=== PATIENT | female | born 1940 | race African-American/Black ===

== ENCOUNTER → 2016-07-08 | Outpatient (CLI) | payer OTHER | LOC: RAD 11:10 | DX: M48.06 Spinal stenosis, lumbar region (principal); M47.896 Other spondylosis, lumbar region ==

== ENCOUNTER 2016-08-16 09:31 | Inpatient (IN) | payer OTHER ==
[~2016-08-16] VITALS: Ht 162.6 cm; Wt 92.9 kg
--- NOTE | ~2016-08-16 | EKG ---
[address] [place] [address] ELECTROCARDIOGRAM REPORT Name: BORA RAMACHANDRAN Room #: 208-P [facility]#: [id number] Admission: 08/16/16 Attend Phys: Cristela López MD Discharge: Date of : 40 Report #: [id number] THIS REPORT FOR: //name// [facility] ED Test Date: 2016-08-16 Test Time: 10:26:51 Pat Name: BORA RAMACHANDRAN Department: Room: 208 Gender: F Administrative Sales Assistant: OCTAVIANO BENITEZ : 1940 Requested By: Armando Flores Order Number: [id number] MD: Thom Freedman Measurements Intervals [place] Rate: 82 P: 39 MD: 174 QRS: -20 QRSD: 76 T: 19 QT: 383 QTc: 448 Interpretive Statements Sinus rhythm No significant abnormality No previous ECG available for comparison Electronically Signed On 08-16-2016 16:50:32 CDT by Thom Freedman [email or web address] <ELECTRONICALLY SIGNED> By: Thom Freedman MD, [facility] 08/16/16 1650 1026 1026 Thom Freedman MD, FACC /EPI
--- NOTE | ~2016-08-16 | HC ---
[facility] [place] [address] CONSULTATION Name: BORA RAMACHANDRAN Room #: 208-P [facility] IN M.R.#: [id number] Admission: 08/16/16 Attend Phys: Patric Alejandro DO Discharge: 08/20/16 Date of : 40 Report #: [id number] THIS REPORT FOR: //name// CC: Patric Cornell The patient is a very pleasant 75-year-old -Faroese female, I have been asked to see for further evaluation of her episodic left upper quadrant abdominal pain radiating to her back, which became more constant over the course of the last couple of weeks. She has had these symptoms over the course of the last several months. She was discovered to have a possible pancreatic lesion on her CT scan and we have been asked to comment on this. PAST MEDICAL HISTORY: Her medical history is well outlined in the chart, but includes hypertension, hypercholesterolemia, and iron deficiency. Other medical history includes DVT, nausea, hysterectomy, laminectomy, and diabetes. MEDICATIONS: She has been on metformin, Xarelto and Amaryl. SOCIAL HISTORY: She denies alcohol or tobacco consumption. REVIEW OF SYSTEMS: Negative for weight loss, weakness, or fatigue. She has had decreased appetite. She denies head, eyes, ears, nose, or throat complaints, chest pain, chest palpitation, chest pressure, cough, shortness of breath, wheezing, genitourinary, musculoskeletal, or neuropsychiatric complaints, otherwise. PHYSICAL EXAMINATION: VITAL SIGNS: The patient is afebrile. Vital signs are stable. HEENT: Nonicteric. NECK: No JVD, thyromegaly, or bruits. CARDIOVASCULAR: Regular. LUNGS: Clear. ABDOMEN: Soft, nondistended, and nontender. Normoactive bowel sounds. No hepatosplenomegaly. No stigmata of chronic liver disease. No abnormal masses or bruits. EXTREMITIES: Not examined. NEUROLOGIC: Not performed. RECTAL: Not performed. PERTINENT LABS: Include hemoglobin 9.7, white count 11.4, MCV 67.9, RDW of 16.4, and platelet count 199. Differential was reviewed. INR 1.1. Chemistry notable for glucose 225. Her liver tests are normal including bilirubin, lipase 393, which is normal. IMAGING STUDIES: Reveal CT pelvis and abdomen, mass at the tail of pancreas and [address] [address] CONSULTATION Name: BORA RAMACHANDRAN Room #: 208-P [facility] IN M.R.#: [id number] Admission: 08/16/16 Attend Phys: Patric Alejandro DO Discharge: 08/20/16 Date of : 40 Report #: [id number] the splenic hilum, etiology difficult to determine concerning for thrombosed splenic artery aneurysm or pseudoaneurysm, mass within the tail of the pancreas was felt to be less likely. CT arteriogram reveals a reasonable consideration of a hemorrhage into a pancreatic tail tumor and an MRI was suggested. SUMMARY: The patient does not have constitutional symptoms that would suggest adenocarcinoma of the pancreas. The location of this mass also would speak against this. It is possible that she does have a cystic neoplasm in the tail of her pancreas with some hemorrhage into that area, particularly being on Xarelto. Other considerations still include a pseudoaneurysm of the splenic artery or other abnormality. The most definitive evaluation of pancreatic lesions is obtained by endoscopic ultrasound, which we could do as an outpatient. I do agree with an MRI to further characterize this lesion and determine a course of action. Again, I appreciate the opportunity to participate in her care. She does have evidence of iron deficiency, but has had upper endoscopy and colonoscopy performed in the past for which she may be do electively as an outpatient. <ELECTRONICALLY SIGNED> By: Jesus Mcneil MD 08/23/16 0811 1513 0959 Alex Alvarez MD /nt
[2016-08-16 09:49] VITALS: BP 175/81
[2016-08-16] MEDS ORDERED: METFORMIN HCL500 MG PO (09:56)
[2016-08-16] MEDS ORDERED: LOSARTAN-HCTZ1 EAC2 PO (09:56)
[2016-08-16] MEDS ORDERED: XARELTO20 MG PO (09:56)
[2016-08-16] MEDS ORDERED: LABETALOL HCL100 MG PO (09:57)
[2016-08-16] MEDS ORDERED: LIPITOR 20 MG T20 M1 PO (09:58)
[2016-08-16] MEDS ORDERED: IRON325 PO (09:59)
[2016-08-16] MEDS ORDERED: AMARYL2 MG PO (09:59)
[2016-08-16 10:32] LABS: URINE BILIRUBIN NEGATIVE (Negative); URINE BLOOD TRACE (Negative); URINE COLOR YELLOW; URINE GLUCOSE-RANDOM* NEGATIVE (Negative); URINE KETONES NEGATIVE (Negative); URINE LEUKOCYTES-REFLEX 1+ (Negative); URINE PROTEIN (DIPSTICK) NEGATIVE (Negative); URINE SPECIFIC GRAVITY 1.015 (1.003-1.035); URINE UROBILINOGEN 0.2 E.U./dl (0.2-1.0)
[2016-08-16 10:50] LABS: ABSOLUTE NEUTROPHILS 9.3 thou/uL (1.4-8.2); BASOPHILS 0.5 % (0.0-2.0); EOSINOPHILS 1.6 % (0.0-3.0); HEMOGLOBIN 9.7 gm/dL (12.0-15.0); LYMPHOCYTES 12.5 % (24.0-44.0); MCHC 32.4 g/dL (28.0-37.0); MCV 67.9 fL (80.0-100.0); MONOCYTES 4.4 % (1.0-8.0); PLATELET COUNT 199 thou/uL (150-400); RBC 4.41 mil/uL (4.20-5.00); RDW 16.4 % (10.5-14.5); WBC 11.4 thou/uL (4.0-11.0)
[2016-08-16 10:52] LABS: MANUAL DIFF NO
[2016-08-16 10:58] LABS: ANION GAP 8 mmol/L (7-16); BUN 19 mg/dL (7-18); CALCIUM 9.1 mg/dL (8.5-10.1); CHLORIDE 98 mmol/L (98-107); CO2 26 mmol/L (21-32); CREATININE 0.9 mg/dL (0.6-1.0); GLUCOSE 216 mg/dL (74-106); SODIUM 132 mmol/L (136-145)
[2016-08-16 11:05] LABS: ALBUMIN 3.6 g/dL (3.4-5.0); ALKALINE PHOSPHATASE 104 U/L (46-116); SGOT 13 U/L (15-37); SGPT 17 U/L (30-65); TOTAL BILIRUBIN 0.5 mg/dL (<0.1-1.0); TOTAL PROTEIN 6.8 g/dL (6.4-8.2); TROPONIN-I < 0.04 ng/mL (<0.04-0.07)
[2016-08-16 11:18] LABS: CASTS None Seen /LPF (None Seen); CRYSTALS None Seen /LPF (None Seen); SQUAMOUS >10 Many /LPF (0-3)
[2016-08-16 11:19] LABS: AMORPHOUS URATES Few /LPF (None Seen); URINE RBC None Seen /HPF (0-2); URINE WBC-REFLEX 0-5 Rare /HPF (0-5)
[2016-08-16 11:31] LABS: ANISOCYTOSIS 1+; HYPOCHROMASIA 2+; MICROCYTES 2+
[2016-08-16 11:32] LABS: OVALOCYTES 1+; SCHISTOCYTES OCCASIONAL
[2016-08-16 12:53] LABS: APTT 47.9 Seconds (24.5-32.8); INR 1.1; PROTIME 11.3 Seconds (9.3-11.4)
[2016-08-16 14:32] VITALS: BP 149/69
[2016-08-16 15:35] VITALS: BP 151/69
[2016-08-16 19:44] VITALS: BP 140/54
[2016-08-16 23:33] VITALS: BP 137/46
[2016-08-17 04:46] LABS: ABSOLUTE NEUTROPHILS 5.2 thou/uL (1.4-8.2); BASOPHILS 0.4 % (0.0-2.0); EOSINOPHILS 3.5 % (0.0-3.0); HEMATOCRIT 27.6 % (37.0-47.0); HEMOGLOBIN 8.9 gm/dL (12.0-15.0); LYMPHOCYTES 21.7 % (24.0-44.0); MCHC 32.4 g/dL (28.0-37.0); MCV 67.9 fL (80.0-100.0); MONOCYTES 9.4 % (1.0-8.0); PLATELET COUNT 182 thou/uL (150-400); RBC 4.06 mil/uL (4.20-5.00); RDW 16.2 % (10.5-14.5); WBC 7.9 thou/uL (4.0-11.0)
[2016-08-17 04:59] LABS: CALCIUM 8.8 mg/dL (8.5-10.1); POTASSIUM 3.6 mmol/L (3.5-5.1)
[2016-08-17 05:00] VITALS: BP 119/59
[2016-08-17 05:02] LABS: MANUAL DIFF NO
[2016-08-17 05:26] LABS: ANISOCYTOSIS 1+; LARGE PLATELETS OCCASIONAL; MICROCYTES 2+; OVALOCYTES OCCASIONAL; POLYCHROMASIA OCCASIONAL; SCHISTOCYTES OCCASIONAL
[2016-08-17 05:27] LABS: HYPOCHROMASIA SLIGHT
[2016-08-17 09:20] VITALS: BP 146/67
[2016-08-17 12:25] VITALS: BP 137/68
[2016-08-17 17:50] VITALS: BP 151/78
[2016-08-17 20:02] VITALS: BP 157/76
[2016-08-18 04:34] VITALS: BP 146/74
[2016-08-18 04:38] LABS: ABSOLUTE NEUTROPHILS 6.6 thou/uL (1.4-8.2); BASOPHILS 0.5 % (0.0-2.0); EOSINOPHILS 2.7 % (0.0-3.0); HEMATOCRIT 27.3 % (37.0-47.0); HEMOGLOBIN 8.9 gm/dL (12.0-15.0); LYMPHOCYTES 18.5 % (24.0-44.0); MCHC 32.5 g/dL (28.0-37.0); MCV 67.9 fL (80.0-100.0); MONOCYTES 7.6 % (1.0-8.0); POLYS 70.7 % (36.0-66.0); RBC 4.02 mil/uL (4.20-5.00); RDW 16.2 % (10.5-14.5); WBC 9.3 thou/uL (4.0-11.0)
[2016-08-18 04:44] LABS: MANUAL DIFF NO
[2016-08-18 04:55] LABS: CALCIUM 9.1 mg/dL (8.5-10.1); POTASSIUM 3.8 mmol/L (3.5-5.1)
[2016-08-18 05:17] LABS: ANISOCYTOSIS 2+; HYPOCHROMASIA SLIGHT; LARGE PLATELETS RARE; MICROCYTES 2+; PLATELET COUNT 171 thou/uL (150-400)
[2016-08-18 16:19] VITALS: BP 176/83
[2016-08-18 20:18] VITALS: BP 166/77
[2016-08-19 00:09] VITALS: BP 153/59
[2016-08-19 04:11] VITALS: BP 147/71
[2016-08-19 05:10] LABS: GLYCOHEMOGLOBIN (HGB A1C) 7.2 % (4.8-5.6)
[2016-08-19 07:00] VITALS: BP 143/63
[2016-08-19 12:45] VITALS: BP 149/64
[2016-08-19 17:10] VITALS: BP 136/54
[2016-08-19 19:37] VITALS: BP 155/56
[2016-08-20 00:03] VITALS: BP 158/83
[2016-08-20 04:46] VITALS: BP 148/69
[2016-08-20 07:59] VITALS: BP 137/78
[2016-08-20 12:00] VITALS: BP 153/73
[2016-08-20] MEDS ORDERED: LANTUS100 UNIT/M SUBQ (15:21)
[2016-08-20] MEDS ORDERED: AMARYL2 MG PO (15:44)
[2016-08-20] MEDS ORDERED: METFORMIN HCL500 MG PO (15:44)
[2016-08-20 16:05] VITALS: BP 153/73
[2016-08-20 16:12] VITALS: BP 153/73
== END 2016-08-20 17:15 | disposition home or self-care (01) | DRG 300 ==
LOC: ER 09:31 → EROBS 13:39 → 2N 13:39
PROVIDERS: Emergency Medicine; Internal Medicine Endocrinology, Diabetes & Metabolism
DX: I72.8 Aneurysm of other specified arteries (principal); K86.2 Cyst of pancreas; D50.9 Iron deficiency anemia, unspecified; E11.65 Type 2 diabetes mellitus with hyperglycemia; I10 Essential (primary) hypertension; E78.00 Pure hypercholesterolemia, unspecified; Z86.718 Personal history of other venous thrombosis and embolism; Z79.899 Other long term (current) drug therapy; Z90.710 Acquired absence of both cervix and uterus; Z88.6 Allergy status to analgesic agent; Z79.01 Long term (current) use of anticoagulants
CPT/HCPCS: 10081

== ENCOUNTER → 2016-10-24 | Outpatient (CLI) | payer OTHER ==
[~2016-10-24] MED LIST: AMARYL2 MG PO; IRON325 PO; LABETALOL HCL100 MG PO; LANTUS100 UNIT/M SUBQ; LIPITOR 20 MG T20 M1 PO; LOSARTAN-HCTZ1 EAC2 PO; METFORMIN HCL500 MG PO; XARELTO20 MG PO
== END ==
LOC: CAT 05:59
PROVIDERS: Psychiatry & Neurology Psychiatry
DX: K86.3 Pseudocyst of pancreas (principal)

== ENCOUNTER → 2016-11-24 | Outpatient (CLI) | payer OTHER | LOC: RAD 15:08 | DX: Z12.31 Encounter for screening mammogram for malignant neoplasm of breast (principal) ==

== ENCOUNTER → 2017-07-06 | Outpatient (CLI) | payer OTHER ==
[~2017-07-06] MED LIST changes: +LABETALOL HCL200 MG PO; +OMEPRAZOLE 20 M20 M1 PO
== END ==
LOC: ULTRA 14:00
DX: I82.431 Acute embolism and thrombosis of right popliteal vein (principal); M79.89 Other specified soft tissue disorders

== ENCOUNTER → 2018-03-31 | Outpatient (CLI) | payer OTHER ==
[~2018-03-31] VITALS: Ht 160 cm; Wt 90.3 kg
[~2018-03-31] MED LIST changes: +CHLORTHALIDONE25 MG PO; +COZAAR100 MG PO; +VITAMIN B-12500 MCG PO; +VITAMIN D32000 UNI1 PO
--- NOTE | 2018-03-31 11:12 | P ---
[facility] [place] [address] PROCEDURE REPORT Name: BORA RAMACHANDRAN [id number] Admission: 03/31/18 Attend Phys: Jesus Little Discharge: Date of : 40 Report #: [id number] THIS REPORT FOR: //name// CC: Mike Mcneil DATE OF SERVICE: 03/31/2018 PROCEDURE PERFORMED: Colonoscopy with biopsies. HISTORY OF PRESENT ILLNESS: The patient is a 77-year-old female with a history of anemia. Hemoglobin on 02/02/2018 was 10.1. She was Hemoccult positive at that time. She denies any obvious bright red blood per rectum or melena. No family history of colon cancer. The patient is on Xarelto for history of DVTs. At one time was on omeprazole. An upper endoscopy was also performed today that showed grade A erosive esophagitis as well as gastric erosions. No evidence of active bleeding. The patient states her last colonoscopy was approximately 10 years ago. She does not recall the findings at that time. She has had a previous hemorrhoidectomy. DESCRIPTION OF PROCEDURE: The risks and benefits of the procedure were explained to the patient, those risks including but not limited to bleeding, perforation, the risk of sedation. She understood these risks and gave informed consent. Sedation was given using propofol per anesthesia. Next, a digital rectal exam was initially performed, which was normal. Next, using a standard Olympus colonoscope, the scope was placed in the patient's anus and advanced under direct vision to the cecum. The overall prep was excellent. The cecum and ileocecal valve were normal in appearance. Ascending colon was normal. In the transverse colon, two 3-4 mm sessile polyps are noted, both removed with cold forceps, otherwise normal. The descending colon was normal. A few scattered diverticula were noted in the sigmoid colon, no evidence of inflammation or bleeding. The rectal mucosa was normal. On retroflexion, small nonbleeding internal hemorrhoids were noted. The scope was then withdrawn and the procedure terminated. The patient tolerated the procedure well. IMPRESSION: 1. Two small colonic polyps. 2. Sigmoid diverticulosis. 3. Small internal hemorrhoids. No evidence of bleeding. 4. Otherwise, normal colonoscopy. RECOMMENDATIONS: 1. Await biopsy results. 2. No evidence of active bleeding on EGD or colonoscopy today. As per the EGD report, consider restarting PPI therapy and monitoring hemoglobin. If the [address] [address] PROCEDURE REPORT Name: BORA RAMACHANDRAN Room #: REG [facility].#: [id number] Admission: 03/31/18 Attend Phys: Jesus Little Discharge: Date of : 40 Report #: [id number] patient remains anemic, may consider a M2 capsule of the small bowel in the future. Thank you for allowing me to participate in her care. <ELECTRONICALLY SIGNED> By: Jesus Mcneil MD 03/31/18 1112 0933 1025 Jesus Mcneil MD /nt
--- NOTE | 2018-03-31 11:12 | P ---
[facility] [place] [address] PROCEDURE REPORT Name: BORA RAMACHANDRAN [facility] [id number] Admission: 03/31/18 Attend Phys: Jesus Little Discharge: Date of : 40 Report #: [id number] THIS REPORT FOR: //name// CC: Mike Mcneil DATE OF SERVICE: 03/31/2018 PROCEDURE PERFORMED: Upper endoscopy with biopsies. HISTORY OF PRESENT ILLNESS: The patient is a 77-year-old female with history of anemia and Hemoccult positive stool in January. She has had a long history of anemia, is on oral iron therapy. She takes Xarelto for history of DVTs, at one point was on omeprazole and reportedly taken off due to possible interaction with Xarelto. She denies any significant heartburn, no dysphagia. The patient was scheduled for colonoscopy today only. We discussed proceeding with an upper endoscopy as well due to the anemia and heme positive stools and she agrees. DESCRIPTION OF PROCEDURE: The risks and benefits of the procedure were explained to the patient, those risks including but not limited to bleeding, perforation and the risk of sedation. She understood these risks and gave informed consent. Sedation was given using propofol per anesthesia. Next, using a standard Olympus upper endoscope, the scope was placed in the patient's mouth and advanced under direct vision through the esophagus, stomach and into the second portion of the duodenum. The larynx was normal in appearance. The upper and mid esophagus was normal. In the distal esophagus at the GE junction, grade A erosive esophagitis was noted. No evidence of bleeding. There were a few small erosions in the gastric mucosa and the gastric body. No bleeding, no ulcerations. Biopsies were obtained to rule out H. pylori. The pylorus was normal and patent. The duodenal bulb, first and second portion were all normal. The scope was then withdrawn and the procedure terminated. The patient tolerated the procedure well. IMPRESSION: 1. Grade A erosive esophagitis, no bleeding. 2. A few small gastric erosions, no bleeding. 3. Otherwise, normal upper endoscopy. RECOMMENDATIONS: 1. Await biopsy results. 2. May need to reconsider daily PPI therapy even though there are no signs of bleeding. On exam today, the patient does have esophagitis and gastric erosions, which could cause Heme-positive stools. Data suggested there is no interaction that I reviewed today. We will need to further discuss this with her primary physician and retail service specialist. [address] [address] PROCEDURE REPORT Name: BORA RAMACHANDRAN Room #: REG [facility] Bree#: [id number] Admission: 03/31/18 Attend Phys: Jesus Little Discharge: Date of : 40 Report #: [id number] Thank you for allowing me to participate in her care. <ELECTRONICALLY SIGNED> By: Jesus Mcneil MD 03/31/18 1112 0912 0922 Jesus Mcneil MD /nt
--- NOTE | 2018-04-01 16:08 | PATH ---
[facility] [place] [address] PATHOLOGY RPT PROCEDURE Name: BORA HUIZAR Room #: REG [facility] Wes.#: [id number] Admission: 03/31/18 Date of : 40 Discharge: Report #: [id number] Path Case #: [id number] [facility] Accession Number: [id number] . 01 Material submitted: . PART A: GASTRITIS BX R/O H. PYLORI PART B: TRANSVERSE COLON POLYP X 2 . 01 Clinical history: . Anemia, blood in stool Gastritis, colon polyp, diverticulosis, internal hemorrhoids Rule out H. pylori . 02 Diagnosis: A. Gastric mucosa, gastritis R/O H. pylori, endoscopic biopsy: - Mild reactive gastropathy. - Negative for intestinal metaplasia or atrophy. - Negative for Helicobacter pylori (properly controlled immunohistochemical stain performed). . B. Polyp x2, transverse colon, endoscopic biopsy: - One fragment showing tubular adenoma without high-grade dysplasia. - Remainder of fragments showing changes compatible with hyperplastic polyps without dysplasia. (IUV:letty; 04/01/2018) QMS/04/01/2018 . 02 Electronically signed: . Suki Dolan MD, Pathologist NPI- [id number] . 01 Gross description: . A. The specimen is received in formalin, labeled "Reed Huizarendolyn, BX gastritis" and consists of 3 fragments of manzo tissue measuring between 0.4 x 0.3 x 0.1 cm and 0.6 x 0.3 x 0.1 cm. They are entirely submitted in A1. . B. The specimen is received in formalin, labeled "Reed Huizarendolyn, BX polyp transverse colon x2" and consists of 3 fragments of soft manzo tissue measuring between 0.2 x 0.2 x 0.1 cm and 0.4 x 0.2 x 0.1 cm. They are entirely submitted in B1. (SDY; 03/31/2018) SYU/SYU . 02 Pathologist provided ICD-10: K31.9, D12.3, K63.5 . 02 CPT . [address] [address] PATHOLOGY RPT PROCEDURE Name: DUARTEBORA Santos Room #: REG [facility] Giron#: [id number] Admission: 03/31/18 Date of : 40 Discharge: Report #: [id number] Path Case #: [id number] Specimen Comment: A courtesy copy of this report has been sent to Specimen Comment: [phone], . Specimen Comment: Report sent to and Performed at: [address] [facility], [place] [id number] MD Luc Lennon MD Phone: [phone] Performed at: [address] [id number] MD Suki Dolan MD Phone: [phone]
== END | disposition home or self-care (01) ==
LOC: GI 03-22 11:29
DX: D12.3 Benign neoplasm of transverse colon (principal); K63.5 Polyp of colon; K57.30 Diverticulosis of large intestine without perforation or abscess without bleeding; K31.9 Disease of stomach and duodenum, unspecified; K64.8 Other hemorrhoids; K22.10 Ulcer of esophagus without bleeding; K21.9 Gastro-esophageal reflux disease without esophagitis; I12.9 Hypertensive chronic kidney disease with stage 1 through stage 4 chronic kidney disease, or unspecified chronic kidney disease; E11.22 Type 2 diabetes mellitus with diabetic chronic kidney disease; N18.9 Chronic kidney disease, unspecified; E78.00 Pure hypercholesterolemia, unspecified; G62.9 Polyneuropathy, unspecified; Z98.890 Other specified postprocedural states; Z79.899 Other long term (current) drug therapy; Z79.01 Long term (current) use of anticoagulants; Z86.2 Personal history of diseases of the blood and blood-forming organs and certain disorders involving the immune mechanism; Z86.718 Personal history of other venous thrombosis and embolism; Z87.891 Personal history of nicotine dependence; Z90.710 Acquired absence of both cervix and uterus; Z85.42 Personal history of malignant neoplasm of other parts of uterus; Z88.6 Allergy status to analgesic agent
CPT/HCPCS: 62110; 62900

== ENCOUNTER → 2018-08-18 | Outpatient (CLI) | payer OTHER | END | disposition home or self-care (01) | LOC: GI 08-16 09:11 | DX: D50.9 Iron deficiency anemia, unspecified (principal); I10 Essential (primary) hypertension; E11.9 Type 2 diabetes mellitus without complications; Z87.19 Personal history of other diseases of the digestive system; Z88.6 Allergy status to analgesic agent; Z79.899 Other long term (current) drug therapy; Z79.01 Long term (current) use of anticoagulants; Z98.890 Other specified postprocedural states ==

== ENCOUNTER 2018-11-16 11:11 | Emergency (ER) | payer OTHER ==
[~2018-11-16] VITALS: Ht 160 cm; Wt 89.8 kg
[2018-11-16 11:13] VITALS: BP 141/80
[2018-11-16] MEDS ORDERED: TRAMADOL 50 MG50 MG PO (11:50)
== END 2018-11-16 12:15 | disposition home or self-care (01) ==
LOC: ER 11:11
DX: M54.12 Radiculopathy, cervical region (principal); I12.9 Hypertensive chronic kidney disease with stage 1 through stage 4 chronic kidney disease, or unspecified chronic kidney disease; N18.9 Chronic kidney disease, unspecified; E11.22 Type 2 diabetes mellitus with diabetic chronic kidney disease; K21.9 Gastro-esophageal reflux disease without esophagitis; I10 Essential (primary) hypertension; M48.02 Spinal stenosis, cervical region; E78.00 Pure hypercholesterolemia, unspecified; E11.40 Type 2 diabetes mellitus with diabetic neuropathy, unspecified; G47.30 Sleep apnea, unspecified; Z90.710 Acquired absence of both cervix and uterus; Z86.718 Personal history of other venous thrombosis and embolism; Z85.42 Personal history of malignant neoplasm of other parts of uterus; Z88.5 Allergy status to narcotic agent; Z87.891 Personal history of nicotine dependence

== ENCOUNTER → 2018-12-27 | Outpatient (CLI) | payer OTHER ==
[~2018-12-27] MED LIST changes: +TRAMADOL 50 MG50 MG PO
== END ==
LOC: MRI 12:38
DX: M47.22 Other spondylosis with radiculopathy, cervical region (principal); M41.82 Other forms of scoliosis, cervical region; M48.02 Spinal stenosis, cervical region; M50.122 Cervical disc disorder at C5-C6 level with radiculopathy; M43.12 Spondylolisthesis, cervical region; M47.813 Spondylosis without myelopathy or radiculopathy, cervicothoracic region

== ENCOUNTER → 2019-04-15 | Outpatient (CLI) | payer OTHER | LOC: RAD 15:24 | DX: M47.816 Spondylosis without myelopathy or radiculopathy, lumbar region (principal); M47.898 Other spondylosis, sacral and sacrococcygeal region; M41.85 Other forms of scoliosis, thoracolumbar region ==

== ENCOUNTER → 2019-10-12 | Outpatient (CLI) | payer OTHER | LOC: ULTRA 08:51 | PROVIDERS: ATTEND Podiatrist Foot & Ankle Surgery | DX: M79.89 Other specified soft tissue disorders (principal); M79.662 Pain in left lower leg; M79.661 Pain in right lower leg; Z86.718 Personal history of other venous thrombosis and embolism ==

== ENCOUNTER → 2019-10-27 | Outpatient (CLI) | payer OTHER ==
[~2019-10-27] VITALS: Ht 162.6 cm; Wt 89.8 kg
[~2019-10-27] MED LIST changes: +BLACK ELDERBER1 EACH PO; +MAGNESIUM400 MG PO
--- NOTE | ~2019-10-27 | HPC ---
[facility] [place] [address] PAIN MANAGEMENT CONSULTATION Name: BORA RAMACHANDRAN Room #: REG [facility] Wes.#: [id number] Admission: 10/27/19 Attend Phys: Christian Adkins MD Discharge: Date of : 40 Report #: [id number] THIS REPORT FOR: cc: Daisy Petty Shanna R. DO Morgan, Richard L. MD ~ CC: Dr. Amber Petty [facility] DATE OF SERVICE: 10/27/2019 CHIEF COMPLAINT: Numbness right arm, pain and numbness in both hands. The patient is a pleasant 79-year-old who I am seeing today at the request of Dr. Russell for cervical radiculopathy. Her daughter, Micheline, was also part of her visit by [facility] and was able to listen into the consultation and ask questions. The patient has been having progressively worse pain in her neck and in her arm. She has symptoms in both arms, although that is somewhat different. On the right, she has pain that radiates into the hand. This was diagnosed by EMG as carpal tunnel syndrome. Dr. Clark performed surgery and this initially helped. The numbness; however has worsened. She now has pain once again in her right arm. More severe pain is noted in her left arm, mostly in the upper arm, but it radiates down also into the forearm and hand. It is severe when she sleeps and she has difficulty finding a comfortable position starting on her back then moving to her right side and back. She has been limiting the use of her arms other than the most essential of activities and that provide some relief, but it is getting more difficult to function. She uses a walker and has noticed that over the last 6 months she is also experiencing some changes in her gait with difficulty. It is difficult for her to stand. She is unsteady and she has difficulty going up and down steps with weakness. This is concerning given the fact that her MRI shows that she has myelomalacia and there is compression of the spinal cord due to an anterolisthesis of C4 on C5 of approximately 4 mm. There is a dextroscoliotic curvature at this location as well. No evidence of bone injury or acute bone edema. Additional changes are also noted at C6-C7 with prominent joint degenerative changes. The canal was tapered at C4-C5. At C6-C7 central disk protrusion also tapers the canal to 9 mm. This affects the neural foramina bilaterally. Some changes of a similar nature seen 1 level below at C7-T1. I did review the MRI and there is a fairly significant thickening of the ligamentum flavum at that level. MEDICATIONS: Elderberry capsules, magnesium, vitamin D. Xarelto 20 mg, last taken yesterday in the afternoon. Cozaar, Trandate, chlorthalidone, Glucophage, [address] [address] PAIN MANAGEMENT CONSULTATION Name: BORA RAMACHANDRAN Room #: REG [facility] Giron#: [id number] Admission: 10/27/19 Attend Phys: Christian Adkins MD Discharge: Date of : 40 Report #: [id number] atorvastatin. ALLERGIES: CODEINE CAUSES NAUSEA AND ELEVATES HEART RATE. PAST MEDICAL HISTORY: History of type 2 diabetes and anemia, hypertension and irritable stomach as she describes it. No history of gastritis or ulcer. Osteoarthritis. History of endometrial cancer treated with surgery in 1997. PAST SURGICAL HISTORY: Tonsillectomy in , D and C x3 in the , hysterectomy in 1997 and laminectomy lumbar 06/1998. SOCIAL HISTORY: She is single, retired and worked for [employer] until 1998. She denies use of tobacco or alcohol. She has a supportive daughter. REVIEW OF SYSTEMS: Positive for weight gain, fatigue, weakness, hearing loss, palpitations, occasional nausea and nocturia. She complains of nervousness and some memory loss. PHYSICAL EXAMINATION: GENERAL: Pleasant 79-year-old. She can move independently from sitting to standing position, but she is very weak. She is clearly walker dependent and a fall risk. HEENT: Reveals pupils to be equal, round, react to light. EOMs are intact. She is wearing a mask for COVID restrictions. NECK: Supple with tenderness posteriorly and below the occiput on both the right and left. Tenderness extends on the left, down into the shoulder, upper arm and forearm. CHEST: Her chest is clear. CARDIAC: Rhythm is regular, but she has a grade 3/6 systolic murmur, which she reports is chronic. ABDOMEN: Tender. Bowel sounds are present. MUSCULOSKELETAL: Reveals decreased range of motion of the cervical spine, neck extension causing dizziness as well as pain radiating into the left arm. Tenderness along the neck, bilateral trapezius and upper arm, left worse than right. She has weakness with left arm abduction and adduction against resistance. Biceps testing shows symmetry and generalized weakness bilaterally. Change Of Address Clerk strength similarly shows weakness. She complains of some numbness subjectively to light touch in the C6-C7 distribution. Deep tendon reflexes are 2+ biceps, triceps and brachioradialis. In the lower extremity, bilateral knee reflexes are extremely brisk with perhaps 1 beat of clonus. Ankle reflexes are diminished bilaterally and symmetrically. IMPRESSION: 1. Cervicalgia with radiculopathy. 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 Cervical radiculopathy. It follows a lower C6-C7 distribution. [facility] [address] [place] [address] PAIN MANAGEMENT CONSULTATION Name: BORA RAMACHANDRAN Room #: REG [facility].#: [id number] Admission: 10/27/19 Attend Phys: Christian Adkins MD Discharge: Date of : 40 Report #: [id number] 2. Type 2 diabetes. 3. Hypertension. 4. History of endometrial cancer in 1997. RECOMMENDATIONS: She cannot have an epidural injection on Xarelto. She takes it for DVT. She would need to be off it for a minimum of 3 days. We would prefer 5. Epidural injection could be performed at a lower level C6-C7, C7-T1. I think the risk would be low at that level, but there are some risks given the narrowing. The finding of myelomalacia is always concerning, particularly in light of the fact that she is hyperreflexic in the lower extremities. She has an appointment with Dr. Clark, but she was told that she could not be seen until April. I am concerned enough by the fact that her gait is starting to become more troublesome. I would not necessarily call spastic, but it is something that she should followup on as soon as possible. Followup visit scheduled for epidural steroid injection for cervical radiculopathy, off Xarelto. By: 1455 1608 MD irvin Hodge
[2019-10-27 13:01] VITALS: BP 162/78
--- NOTE | 2019-10-27 13:19 | NUR ---
Pain Clinic Assessment: 1. History of Osteoarthritis: SPINE History of Rheumatoid Arthritis: Not Applicable 2. Height: 5 ft. 4 in. 162.6 cm. Weight: 198.0 lb. oz. 89.812 kg. Patient's BMI: 34.0 3. Vital Signs: BP: 162/78 Pulse: 85 Resp: 18 Temp: 02 Sat: 100 ECG Mon: 4. Pain Intensity: 2; 8 AT WORST 5. Fall Risk: Dizziness: Y Needs help standing or walking: Y Fallen in the last 3 months: Y Fall risk comments: 6. Patient on Blood Thinner: XARELTO 7. History of Hypertension: Y 8. Opioid Therapy greater than 6 weeks: N Opiate Contract Signed: 9. Risk Assessment Tool Provided: 1-LOW RISK 10. Functional Assessment Tool: 11. Recreational Drug Use: Never Drug Type: Tobacco Use: Never Smoker Tobacco Type: Amount or Packs/day: How Many Years: Alcohol Use: No Frequency: Quant:
== END ==
LOC: PAIN 06:52
PROVIDERS: ATTEND Anesthesiology Pain Medicine
DX: M48.02 Spinal stenosis, cervical region (principal); G95.89 Other specified diseases of spinal cord; E78.5 Hyperlipidemia, unspecified; I10 Essential (primary) hypertension; M79.642 Pain in left hand; M79.641 Pain in right hand; M54.12 Radiculopathy, cervical region; Z88.8 Allergy status to other drugs, medicaments and biological substances; Z79.899 Other long term (current) drug therapy; Z90.710 Acquired absence of both cervix and uterus; Z85.41 Personal history of malignant neoplasm of cervix uteri

== ENCOUNTER → 2019-11-10 | Outpatient (CLI) | payer OTHER ==
[~2019-11-10] VITALS: Ht 162.6 cm; Wt 88.0 kg
[~2019-11-10] MED LIST changes: +JANUVIA25 MG PO
--- NOTE | ~2019-11-10 | HPC ---
[facility] [place] [address] PAIN MANAGEMENT CONSULTATION Name: BORA RAMACHANDRAN Room #: REG BUDDY Wes.#: [id number] Admission: 11/10/19 Attend Phys: Christian Adkins MD Discharge: Date of : 40 Report #: [id number] THIS REPORT FOR: cc: Daisy Petty Shanna R. DO Morgan, Richard L. MD ~ CC: Dr. Amber Petty DATE OF SERVICE: 11/10/2019 25-minute followup visit to discuss chronic pain and numbness. The patient returns to pain clinic today with her granddaughter. I spoke with her last on 10/26 and we discussed the possibility of a cervical epidural injection to help with cervical radicular symptoms. She has been unable to go off of her Xarelto. She spoke with her primary care physician regarding this. We spent the rest of today's visit discussing non-injection treatments to help with pain and numbness. She complains of a pain intensity of 2/10, 8 at the worst. Most of her pain is on the right where she also has numbness. She has a trigger finger that is intermittently painful and her wrist that hurts quite often. Her left arm remains numb in a dermatomal distribution consistent with radiculopathy. There is some weakness there as well. Intermittently, she has significant muscle tension in her neck, which is relieved when she gets a gentle soft tissue massage from her son. As frequently as he can do that she will take it. We discussed the use of heat and ice extensively. Heat to warm up and loosen things, ice after she has been active to help reduce swelling and inflammation. She can use this on her shoulder, which often times hurts. She has arthropathy there as well. We discussed medications and went through nearly every class including nonsteroidal anti-inflammatory drugs, muscle relaxants, opioids antidepressants and neuropathic medicines such as gabapentin and Lyrica. She has had experienced in nearly every class and has had complications or side effects. She would prefer to avoid medication other than occasional Tylenol. She does have tramadol at home, which was prescribed last in 01/2019. We discussed the possibility of perhaps using half a tablet if the pain is very severe. She should watch for side effects, which we reviewed. We talked about gentle exercise. Too much exercise I think we will exacerbate [facility] [address] [place] [address] PAIN MANAGEMENT CONSULTATION Name: BORA RAMACHANDRAN Room #: REG CLI Felisa#: [id number] Admission: 11/10/19 Attend Phys: Christian Adkins MD Discharge: Date of : 40 Report #: [id number] her neck pain and it is just not a lot that I would have her do other than keep moving. Gentle range of motion of the shoulder may be beneficial. We discussed topical analgesics. Diclofenac now [id number] can be cost effective and used 3 times a day, may help with her shoulder. I made it clear that this would not help with her neuropathic pain or numbness. IMPRESSION: 1. Cervicalgia with cervical radiculopathy including pain and numbness into both arms. 2. History of carpal tunnel surgery. 3. Hypertension. 4. Type 2 diabetes. 5. Diffuse cervicalgia secondary to marked degenerative changes. Myelomalacia is noted on her MRI at the level of C4-5 where she has anterolisthesis. RECOMMENDATIONS: She will make efforts to use nonmedicinal strategies discussed today and small doses of tramadol or Tylenol when the pain is severe. No injections are recommended at this time. By: [id number] Christian Adkins MD /nt
[2019-11-10 10:28] VITALS: BP 162/79
--- NOTE | 2019-11-10 10:35 | NUR ---
Pain Clinic Assessment: 1. History of Osteoarthritis: SPINE History of Rheumatoid Arthritis: Not Applicable 2. Height: 5 ft. 4 in. 162.6 cm. Weight: 194.0 lb. oz. 87.998 kg. Patient's BMI: 33.3 3. Vital Signs: BP: 162/79 Pulse: 87 Resp: 16 Temp: 02 Sat: 99 ECG Mon: 4. Pain Intensity: 8-9 WITH ACTIVITY 5. Fall Risk: Dizziness: Y Needs help standing or walking: Y Fallen in the last 3 months: N Fall risk comments: 6. Patient on Blood Thinner: XARELTO 7. History of Hypertension: Y 8. Opioid Therapy greater than 6 weeks: N Opiate Contract Signed: 9. Risk Assessment Tool Provided: 1-LOW RISKT-1 10. Functional Assessment Tool: 11. Recreational Drug Use: Never Drug Type: Tobacco Use: Never Smoker Tobacco Type: Amount or Packs/day: How Many Years: Alcohol Use: No Frequency: Quant:
== END ==
LOC: PAIN 06:48
PROVIDERS: ATTEND Anesthesiology Pain Medicine
DX: G95.89 Other specified diseases of spinal cord (principal); M47.22 Other spondylosis with radiculopathy, cervical region; I10 Essential (primary) hypertension; E11.9 Type 2 diabetes mellitus without complications; Z79.891 Long term (current) use of opiate analgesic

== ENCOUNTER → 2020-01-25 | Outpatient (CLI) | payer OTHER | LOC: NUC 06:31 | PROVIDERS: ATTEND Internal Medicine | DX: Z78.0 Asymptomatic menopausal state (principal) ==

== ENCOUNTER 2020-06-05 22:01 | Emergency (ER) | payer OTHER ==
[~2020-06-05] VITALS: Ht 160 cm; Wt 91.2 kg
[2020-06-05 23:01] LABS: ABSOLUTE NEUTROPHILS 4.4 thou/uL (1.4-8.2); BASOPHILS 1.1 % (0.0-2.0); EOSINOPHILS 2.2 % (0.0-3.0); HEMOGLOBIN 9.4 gm/dL (12.0-15.0); LYMPHOCYTES 27.9 % (24.0-44.0); MCHC 31.3 g/dL (28.0-37.0); MCV 70.4 fL (80.0-100.0); MONOCYTES 8.5 % (1.0-8.0); PLATELET COUNT 237 thou/uL (150-400); POLYS 60.3 % (36.0-66.0); RBC 4.26 mil/uL (4.20-5.00); RDW 16.1 % (10.5-14.5); WBC 7.4 thou/uL (4.0-11.0)
[2020-06-05 23:06] LABS: ANION GAP 11 mmol/L (7-16); BUN 14 mg/dL (7-18); CALCIUM 8.8 mg/dL (8.5-10.1); CHLORIDE 101 mmol/L (98-107); CO2 27 mmol/L (21-32); CREATININE 1.2 mg/dL (0.6-1.0); GLUCOSE 122 mg/dL (74-106); POTASSIUM 3.7 mmol/L (3.5-5.1); SODIUM 139 mmol/L (136-145)
[2020-06-05 23:15] LABS: ALBUMIN 3.6 g/dL (3.4-5.0); LIPASE 96 U/L (73-393); SGOT 9 U/L (15-37); SGPT 19 U/L (14-59); TOTAL BILIRUBIN 0.3 mg/dL (0.2-1.0); TOTAL PROTEIN 6.6 g/dL (6.4-8.2); TROPONIN-I <0.06 ng/mL (<0.06)
[2020-06-05 23:30] LABS: APTT 84.3 Seconds (24.5-32.8); INR 1.5
[2020-06-06 00:54] VITALS: BP 144/59
--- NOTE | 2020-06-06 07:03 | EKG ---
[address] [place] [address] ELECTROCARDIOGRAM REPORT Name: WESLEY RAMACHANDRANN Tom Room #: [facility]#: [id number] Admission: 06/05/20 Attend Phys: Discharge: 06/06/20 Date of : 40 Report #: [id number] [facility] Test Date: 2020-06-05 Test Time: 22:16:49 Pat Name: BORA RAMACHANDRAN Department: Room: Gender: F [employer]: BIBI : 1940 Requested By: Antonietta Peterson Order Number: [id number] MD: Ramin Butler Measurements Intervals [place] Rate: 83 P: 66 IA: 177 QRS: -11 QRSD: 81 T: 34 QT: 405 QTc: 476 Interpretive Statements Sinus rhythm Probable left atrial enlargement Low voltage, precordial leads Baseline wander in lead(s) I,aVL Compared to ECG 06/29/2017 17:24:55 Low QRS voltage now present Poor R-wave progression no longer present Electronically Signed On 06-06-2020 7:03:41 CDT by Ramin Butler [email or web address] <ELECTRONICALLY SIGNED> By: Ramin Butler MD, FACC 06/06/20 0703 15 15 Ramin Butler MD, [facility] /EPI
== END 2020-06-06 00:58 | disposition home or self-care (01) ==
LOC: ER 22:01
PROVIDERS: Emergency Medicine
DX: R07.89 Other chest pain (principal); I10 Essential (primary) hypertension; E78.5 Hyperlipidemia, unspecified; E11.9 Type 2 diabetes mellitus without complications; Z79.01 Long term (current) use of anticoagulants; Z90.89 Acquired absence of other organs; Z90.710 Acquired absence of both cervix and uterus; Z79.899 Other long term (current) drug therapy; Z87.891 Personal history of nicotine dependence; Z88.5 Allergy status to narcotic agent